=== PATIENT | female | born 1960 | race African-American/Black ===

== ENCOUNTER 2020-08-26 13:33 | Inpatient (IN) | payer BC, MEDICAID ==
[~2020-08-26] VITALS: Ht 167.6 cm; Wt 130.6 kg
[2020-08-26 13:45] VITALS: BP 99/63
--- NOTE | 2020-08-26 14:32 | Emergency Room Report ---
History of Present Illness General Chief Complaint: Generalized Weakness Source: Patient Present Illness HPI 59-year-old female with history of hypercholesterolemia on a statin here with lightheadedness for 8 days. Patient says that she has had subjective fever, productive cough for the last 8 days. She says over the past several days she has had intermittent lightheadedness upon standing. She has not taken any medications for her symptoms. Pleasant she got a flu shot several weeks ago. Denies chills, chest pain, palpitations, shortness of breath, back pain, abdominal pain, nausea, vomiting, diarrhea, dysuria. No leg pain, leg swelling, recent long car rides or plane rides. 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 Past Medical History: No History, Except For Hx COPD: Yes - bronchitis Review of Systems All Other Systems: negative except mentioned in HPI Physical Exam Vital Signs Date Time Temp Pulse Resp B/P (MAP) Pulse Ox O2 Delivery O2 Flow Rate FiO2 08/26/20 13:38 98.8 102 16 99/63 (75) 90 Room Air Sp02 EP Interpretation: reviewed, normal General Appearance: no apparent distress, alert, non-toxic Head: normocephalic, atraumatic Eyes: bilateral eye normal inspection, bilateral eye PERRL ENT: hearing grossly normal, normal pharynx, no angioedema, normal voice Neck: full range of motion, supple/symm/no masses Respiratory: chest non-tender, lungs clear, normal breath sounds, speaking full sentences Cardiovascular #1: regular rate, rhythm, no edema Cardiovascular #2: 2+ carotid (R), 2+ carotid (L), 2+ radial (R), 2+ radial (L), 2+ dorsalis pedis (R), 2+ dorsalis pedis (L) Gastrointestinal: normal bowel sounds, non tender, soft, non-distended, no guarding, no rebound Rectal: deferred Genitourinary: normal inspection, no CVA tenderness Musculoskeletal: back normal, normal range of motion, gait/station normal, non- tender Neurologic: alert, motor strength/tone normal, oriented x3, sensory intact, responsive, speech normal Psychiatric: judgement/insight normal, memory normal, mood/affect normal, no suicidal/homicidal ideation Lymphatic: no adenopathy Medical Decision Making Diagnostic Impression: Primary Impression: Pulmonary embolism Additional Impressions: Suspected 2019 novel coronavirus infection Cough Weakness NSTEMI (non-ST elevated myocardial infarction) UTI (urinary tract infection) ER Course EKG: NSR, rate 87 bpm. T wave inversions in leads V3 through V6, intervals WNL. No ectopy Rhythm strip: patient monitored for arrhythmias - no malignant dysrhythmias, runs of PVCs, nor pauses noted Chest x-ray: Diffuse interstitial appearing pulmonary infiltrates through all lung art concerning for infectious process. No cardiomegaly. No free air under the diaphragm. No bony abnormalities. Total critical care time: Approximately 45 minutes Due to a high probability of clinically significant, life threatening deteri oration, the patient required the highest level of preparedness to intervene emergently and I personally spent this critical care time directly and personally managing the patient. This critical care time included obtaining a history, examining the patient, pulse oximetry, ordering and reviewing studies, ordering treatments, evaluating response to treatment and updating management plan as needed, frequent reassessment and discussion with other providers as well as arranging for ultimate disposition. This critical to care time was performed to assess and manage the high probability of life-threatening deterioration that could result in multiorgan failure. This critical care time is separate from the separately billable procedures and treating other patients. CTA chest: Impression: Findings suspicious for single right upper lobe subsegmental branch vessel pulmonary embolus. Bilateral diffuse patchy groundglass opacities, highly suspicious for viral pneumonia Portable and cardiomegaly Large hiatal hernia Incidental finding right renal cyst Procedure: XRAY Chest 1v Indication: Shortness of breath Technique: One view of the chest Comparison: none Findings: Bilateral interstitial and airspace infiltrates are demonstrated. The pleural spaces are clear. The heart size is normal. There is a hiatal hernia Impression: Bilateral infiltrates, likely multifocal pneumonia Hiatal hernia Laboratory Tests Test 08/26/20 14:23 08/26/20 14:25 White Blood Count 9.7 K/UL (4.8-10.8) Red Blood Count 4.33 M/UL (4.20-5.40) Hemoglobin 13.8 G/DL (12.0-16.0) Hematocrit 42.3 % (37.0-47.0) Mean Corpuscular Volume 98 FL (80-99) Mean Corpuscular Hemoglobin 32.0 PG (27.0-31.0) H Mean Corpuscular Hemoglobin Concent 32.7 G/DL (32.0-36.0) Red Cell Distribution Width 12.8 % (11.6-14.8) Platelet Count 239 K/UL (150-450) Mean Platelet Volume 8.0 FL (6.5-10.1) Neutrophils (%) (Auto) 81.0 % (45.0-75.0) H Lymphocytes (%) (Auto) 11.6 % (20.0-45.0) L Monocytes (%) (Auto) 6.5 % (1.0-10.0) Eosinophils (%) (Auto) 0.1 % (0.0-3.0) Basophils (%) (Auto) 0.9 % (0.0-2.0) Prothrombin Time 10.8 SEC (9.30-11.50) Prothrombin Time INR 1.0 (0.9-1.1) Activated Partial Thromboplast Time 35 SEC (23-33) H D-Dimer 0.46 mg/L FEU (0.00-0.49) Urine Color Yellow Urine Appearance Cloudy Urine pH 8 (4.5-8.0) Urine Specific Willow 1.010 (1.005-1.035) Urine Protein 2+ (NEGATIVE) H Urine Glucose (UA) Negative (NEGATIVE) Urine Ketones Negative (NEGATIVE) Urine Blood 4+ (NEGATIVE) H Urine Nitrite Negative (NEGATIVE) Urine Bilirubin Negative (NEGATIVE) Urine Urobilinogen 4 MG/DL (0.0-1.0) H Urine Leukocyte Esterase 3+ (NEGATIVE) H Urine RBC 2-4 /HPF (0 - 2) H Urine WBC 5-10 /HPF (0 - 2) H Urine Squamous Epithelial Cells Few /LPF (NONE/OCC) Urine Amorphous Sediment Moderate /LPF (NONE) H Urine Bacteria Moderate /HPF (NONE) H Ferritin 343 NG/ML (8-388) Lactate Dehydrogenase 312 U/L (81-234) H Total Creatine Kinase 100 U/L (26-308) Creatine Kinase MB < 0.5 NG/ML (0.0-3.6) Creatine Kinase MB Relative Index 0.5 C-Reactive Protein, Quantitative 26.0 mg/dL (0.00-0.90) H Pro-B-Type Natriuretic Peptide 253 pg/mL (0-125) H 249 pg/mL (0-125) H Lipase 43 U/L (73-393) L Urine Opiates Screen Negative (NEGATIVE) Urine Barbiturates Screen Negative (NEGATIVE) Phencyclidine (PCP) Screen Negative (NEGATIVE) Urine Amphetamines Screen Negative (NEGATIVE) Urine Benzodiazepines Screen Negative (NEGATIVE) Urine Cocaine Screen Negative (NEGATIVE) Urine Marijuana (THC) Screen Negative (NEGATIVE) Sodium Level 136 MMOL/L (136-145) Potassium Level 4.2 MMOL/L (3.5-5.1) Chloride Level 99 MMOL/L (98-107) Carbon Dioxide Level 31 MMOL/L (21-32) Anion Gap 6 mmol/L (5-15) Blood Urea Nitrogen 8 mg/dL (7-18) Creatinine 0.9 MG/DL (0.55-1.30) Estimated Glomerular Filtration Rate > 60 mL/min (>60) Glucose Level 96 MG/DL (74-106) Calcium Level 8.7 MG/DL (8.5-10.1) Total Bilirubin 0.5 MG/DL (0.2-1.0) Aspartate Amino Transferase (AST) 32 U/L (15-37) Alanine Aminotransferase (ALT) 26 U/L (12-78) Alkaline Phosphatase 131 U/L (46-116) H Troponin I 0.000 ng/mL (0.000-0.056) Total Protein 7.7 G/DL (6.4-8.2) Albumin 3.0 G/DL (3.4-5.0) L Globulin 4.7 g/dL Albumin/Globulin Ratio 0.6 (1.0-2.7) L 59-year-old female here with several days of generalized weakness. Patient was found to be mildly hypotensive on arrival to the emergency department with a MAP of 65. She was given a full 30 cc/kg fluid bolus and had vast improvement of her blood pressure. At no point was she ever in respiratory distress. She had normal oxygen saturation throughout her stay in the emergency department. However she was complaining of some mild generalized chest discomfort. Chest x- ray showed multiple pulmonary infiltrates throughout the lung art suspicious for possible COVID-19. COVID-19 swab pending at this time. CTA of the chest revealed groundglass opacities diffusely as well as a small pulmonary embolism. Patient was given a dose of 100 mg of Lovenox. She also had evidence of urinary tract infection. She was started on ceftriaxone and azithromycin and Decadron. Will be admitted to telemetry. Last Vital Signs Date Time Temp Pulse Resp B/P (MAP) Pulse Ox O2 Delivery O2 Flow Rate FiO2 08/26/20 13:38 98.8 102 16 99/63 (75) 90 Room Air Fidel Healy M.D. Aug 26, 2020 14:32
[2020-08-26 14:53] LABS: APPEARANCE,URINE CLOUDY; BILIRUBIN, URINE NEGATIVE (NEGATIVE); GLUCOSE, URINE (UA) NEGATIVE (NEGATIVE); KETONES,URINE NEGATIVE (NEGATIVE); LEUKOCYTE ESTERASE ,URINE 3+ (NEGATIVE); NITRITE,URINE NEGATIVE (NEGATIVE); PH,URINE 8 (4.5-8.0); PROTEIN,URINE 2+ (NEGATIVE); UROBILINOGEN,URINE 4 MG/DL (0.0-1.0)
[2020-08-26 15:01] LABS: BASOPHILS % (AUTO) 0.9 % (0.0-2.0); EOSINOPHILS % (AUTO) 0.1 % (0.0-3.0); HEMATOCRIT 42.3 % (37.0-47.0); HEMOGLOBIN 13.8 G/DL (12.0-16.0); LYMPHOCYTES % (AUTO) 11.6 % (20.0-45.0); MEAN CORPUSCULAR VOLUME 98 FL (80-99); MONOCYTES % (AUTO) 6.5 % (1.0-10.0); PLATELET COUNT 239 K/UL (150-450); RED BLOOD COUNT 4.33 M/UL (4.20-5.40); RED CELL DISTRIBUTION WIDTH 12.8 % (11.6-14.8); WHITE BLOOD COUNT 9.7 K/UL (4.8-10.8)
[2020-08-26 15:03] LABS: COLOR,URINE YELLOW
[2020-08-26 15:06] LABS: ANION GAP 6 mmol/L (5-15); BLOOD UREA NITROGEN 8 mg/dL (7-18); CALCIUM 8.7 MG/DL (8.5-10.1); CARBON DIOXIDE 31 MMOL/L (21-32); CHLORIDE 99 MMOL/L (98-107); CREATININE 0.9 MG/DL (0.55-1.30); POTASSIUM 4.2 MMOL/L (3.5-5.1); SODIUM 136 MMOL/L (136-145)
[2020-08-26 15:10] LABS: ALANINE AMINOTRANSFERASE 26 U/L (12-78); ALBUMIN/GLOBULIN RATIO 0.6 (1.0-2.7); ALKALINE PHOSPHATASE 131 U/L (46-116); ASPARTATE AMINO TRANSFERASE 32 U/L (15-37); BILIRUBIN,TOTAL 0.5 MG/DL (0.2-1.0)
[2020-08-26] MEDS ORDERED: cefTRIAXone 1 GM in NS 55 ML IVPB ONE (15:15)
[2020-08-26] MEDS ORDERED: Aspirin Baby 81mg ORAL ONE (15:15)
[2020-08-26] MEDS ORDERED: Omnipaque 350 100ml vial INJ PRN (15:30)
--- NOTE | 2020-08-26 16:43 | Diagnostic Imaging Report ---
Indication: Shortness of breath Technique: One view of the chest Comparison: none Findings: Bilateral interstitial and airspace infiltrates are demonstrated. The pleural spaces are clear. The heart size is normal. There is a hiatal hernia Impression: Bilateral infiltrates, likely multifocal pneumonia Hiatal hernia
--- NOTE | 2020-08-26 16:55 | Diagnostic Imaging Report ---
ndication: Chest pain, shortness of breath, coughing Technique: IV administration nonionic contrast. Spiral acquisitions obtained from the lung bases to the lung apices. Multiplanar and 3-D reconstructions were generated on integrated workstation. Total dose length product 764 mGycm. CTDIvol(s) one, 45, 21 mGy. Dose reduction achieved using automated exposure control Comparison: none Findings: There is good quality opacification of the pulmonary arteries. There is lack of opacification of a single subsegmental right upper lobe pulmonary artery posterior branch vessel, best appreciated on axial image 71 of series 5 and coronal images 70 through 72 of series 9. No other definite filling defects. Normal caliber pulmonary arteries. No evidence of right ventricular dilatation. No evidence of thoracic aortic aneurysm or dissection demonstrated. The lungs demonstrate bilateral diffuse patchy groundglass opacities. No effusions. No definite masses or nodules. The heart is borderline enlarged. There is a large paraesophageal hiatal hernia. No mediastinal or hilar mass or adenopathy demonstrated. The thyroid is unremarkable except for a small calcification in the isthmus. No axillary or chest wall mass or adenopathy. The included upper abdominal anatomy is remarkable for the presence of a right renal cyst. Impression: Findings suspicious for single right upper lobe subsegmental branch vessel pulmonary embolus. Bilateral diffuse patchy groundglass opacities, highly suspicious for viral pneumonia Portable and cardiomegaly Large hiatal hernia Incidental finding right renal cyst The CT scanner at [facility] is accredited by the [employer] and the scans are performed using protocols designed to limit radiation exposure to as low as reasonably achievable to attain images of sufficient resolution adequate for diagnostic evaluation.
[2020-08-26] MEDS ORDERED: Azithromycin 500 MG in NS 275 ML IV ONE (17:15)
[2020-08-26] MEDS ORDERED: Enoxaparin 100mg Inj SUBQ ONE (17:15)
[2020-08-26] MEDS ORDERED: dexAMETHasone 10mg/ml Inj IV ONE (17:15)
[2020-08-26 17:36] LABS: CKMB < 0.5 NG/ML (0.0-3.6); CREATINE KINASE 100 U/L (26-308); FERRITIN 343 NG/ML (8-388); LACTATE DEHYDROGENASE 312 U/L (81-234)
[2020-08-26] MEDS ORDERED: Albuterol 90mcg Inhaler 8gm INH PRN (19:15)
[2020-08-26] MEDS: cefTRIAXone 1 GM in D5W 55 ML IVPB SCH (21:00)
[2020-08-27] VITALS: BP 139/73
[2020-08-27] MEDS: Ascorbic Acid 500mg tab ORAL SCH ×3 (00:27→18:17)
[2020-08-27 04:00] VITALS: BP 128/77
[2020-08-27 08:00] VITALS: BP 106/73
[2020-08-27] MEDS: Eliquis 5mg tablet ORAL SCH ×2 (08:41→18:17)
[2020-08-27] MEDS: Zinc Sulfate 220mg ORAL SCH (08:41)
[2020-08-27] MEDS: Azithromycin 250mg tab ORAL SCH (08:41)
[2020-08-27] MEDS: Vitamin D 1000 units Tab ORAL SCH (08:41)
--- NOTE | 2020-08-27 09:00 | History and Physical Report ---
DATE OF ADMISSION: 08/26/2020 CHIEF COMPLAINT: COVID-19 pneumonia, PE. HISTORY OF PRESENT ILLNESS: The patient is a 59-year-old female with no past medical history. She presents with complaints of fevers, cough, and congestion lasting for approximately a week. On evaluation in the emergency room, her rapid COVID was positive. A CT scan of the chest showed ground-glass opacities bilaterally and a small subsegmental pulmonary embolism. In light of the above findings, the patient is now admitted for further evaluation and care. She is currently doing well and saturating 99% on room air. PAST MEDICAL HISTORY: None. PAST SURGICAL HISTORY: None. CURRENT MEDICATIONS: None. FAMILY HISTORY: None. SOCIAL HISTORY: Negative for tobacco, ethanol, or drugs. REVIEW OF SYSTEMS: Negative except for some cough and chest pain. PHYSICAL EXAMINATION: VITAL SIGNS: Temperature 98, pulse 80, respirations 24, blood pressure 128/77. GENERAL: The patient is well developed, in no apparent distress. HEART: Regular. LUNGS: Clear ABDOMEN: Soft. EXTREMITIES: Without clubbing, cyanosis, or edema. PLAN: 1. Start on Eliquis loading dose for one week and then 5 mg twice a day for the next three to six months. 2. ID consultation. 3. Supplemental oxygen and Tylenol as needed. 4. Possible discharge planning if no specific treatment for COVID is needed at this time. Franko Khan M.D. DR: JOSSELYN JOB#: [id number] CC:
[2020-08-27 12:00] VITALS: BP 97/76
--- NOTE | 2020-08-27 12:29 | Consultation ---
DATE OF CONSULTATION: 08/27/2020 INFECTIOUS DISEASE CONSULTATION CONSULTING PHYSICIAN: Jonah Collier MD. REFERRING PHYSICIAN: Franko Khan MD. REASON FOR CONSULTATION: COVID-19 pneumonia. HISTORY OF PRESENTING ILLNESS: This is a 59-year-old lady with hypercholesterolemia, who comes in along with fever, cough, and congestion. She was found to be COVID-[address] chest showed ground-glass opacities bilaterally with a small pulmonary embolism. An Infectious Diseases consultation has been obtained for antibiotics. PAST MEDICAL HISTORY: History of hypercholesterolemia. SOCIAL HISTORY: She does not smoke, drink, or use drugs. FAMILY HISTORY: Noncontributory. REVIEW OF SYSTEMS: RESPIRATORY: She has fever. She has cough and congestion. No shortness of breath. She does have mild chest pain. CARDIAC: She does have mild chest pain. No palpitation. No dizziness. No syncope. GASTROINTESTINAL: No nausea. No vomiting. No abdominal pain or diarrhea. MEDICATIONS: As an inpatient, she is on Eliquis, zinc sulfate, vitamin D, azithromycin, Eliquis, Tylenol, ascorbic acid, ceftriaxone, albuterol, and Protonix. ALLERGIES: No known drug allergies. PHYSICAL EXAMINATION: VITAL SIGNS: Temperature 99.5, T-max of 100.8, pulse of 106, respiratory rate 21, blood pressure 106/73. O2 saturation of 99% on room air. Examination is deferred due to COVID-19. LABORATORY DATA: White count 9.7, hemoglobin 13.8, hematocrit 42.3, MCV 98, platelet count of 239,000. Sodium 136, potassium 4.2, chloride 99, bicarb 31, BUN 8, creatinine 0.9. Glucose 96. Calcium 8.7. Total bilirubin 0.5, AST 32, ALT 36, alkaline phosphatase 131. LDH 312. CK 100. Troponin 0. Beta-natriuretic peptide 249. Total protein 7.7, albumin 3. Lipase of 43. UA is showing 5 to 10 white cells. COVID-19 test is positive. Chest x-ray is showing bilateral infiltrates. CT chest angiogram showing suspicious for single right upper lobe pulmonary embolus, diffuse bilateral patchy ground-glass opacities, large hiatal hernia. ASSESSMENT: This is a 59-year-old lady with history of hypercholesterolemia, who comes in with fever, cough along with congestion and is found to have, 1. COVID-19 pneumonia. She is on room air with a saturation of 99%. 2. She also might have urinary tract infection. 3. Hypercholesterolemia. PLAN: 1. Continue ceftriaxone. 2. Discontinue azithromycin. 3. We will order urine cultures. 4. Continue isolation. I would like to thank Dr. Khan for this consultation. Jonah Collier M.D. DR: JOSÉ MANUEL JOB#: [id number] CC:
[2020-08-27 16:00] VITALS: BP 121/71
[2020-08-27 20:00] VITALS: BP 136/83
[2020-08-27] MEDS: cefTRIAXone 1 GM in D5W 55 ML IVPB SCH (21:23)
[2020-08-28] VITALS: BP 141/80
[2020-08-28 04:00] VITALS: BP 136/73
[2020-08-28 08:00] VITALS: BP 127/63
[2020-08-28] MEDS: Zinc Sulfate 220mg ORAL SCH (08:40)
[2020-08-28] MEDS: Eliquis 5mg tablet ORAL SCH ×2 (08:40→17:34)
[2020-08-28] MEDS: Ascorbic Acid 500mg tab ORAL SCH ×2 (08:40→17:33)
[2020-08-28] MEDS: Vitamin D 1000 units Tab ORAL SCH (08:40)
[2020-08-28] MEDS: Azithromycin 250mg tab ORAL SCH (08:41)
--- NOTE | 2020-08-28 11:52 | General Progress Note ---
Subjective ROS Limited/Unobtainable: No Constitutional: Reports: no symptoms, weakness HEENT: Reports: no symptoms Cardiovascular: Reports: no symptoms Respiratory: Reports: no symptoms Gastrointestinal/Abdominal: Reports: no symptoms Genitourinary: Reports: no symptoms Neurologic/Psychiatric: Reports: no symptoms Endocrine: Reports: no symptoms Hematologic/Lymphatic: Reports: no symptoms Allergies: Coded Allergies: No Known Allergies (Unverified , 08/26/20) All Systems: reviewed and negative except above Subjective no complaints. no chest pain or sob. no fever or chills. no bleeding Objective Last 24 Hour Vital Signs Date Time Temp Pulse Resp B/P (MAP) Pulse Ox O2 Delivery O2 Flow Rate FiO2 08/28/20 09:00 Room Air 08/28/20 08:00 98.7 91 20 127/63 (84) 99 08/28/20 08:00 77 08/28/20 04:00 68 08/28/20 04:00 99.0 69 18 136/73 (94) 99 08/28/20 00:00 69 08/28/20 00:00 99.0 80 23 141/80 (100) 99 08/27/20 21:00 Room Air 08/27/20 20:00 97.3 80 20 136/83 (100) 97 08/27/20 20:00 85 08/27/20 16:00 98.6 76 21 121/71 (88) 97 08/27/20 16:00 77 08/27/20 12:00 99.7 77 21 97/76 (83) 97 08/27/20 12:00 84 Intake and Output 08/27/20 08/28/20 19:00 07:00 Intake Total 1680 ml 400 ml Balance 1680 ml 400 ml Intake Oral 1680 ml 400 ml # Voids 3 1 Height (Feet): 5 Height (Inches): 6.00 Weight (Pounds): 288 General Appearance: WD/WN, alert Cardiovascular: normal rate, regular rhythm Respiratory/Chest: chest wall non-tender, lungs clear, normal breath sounds Edema: no edema noted Leg (L), no edema noted Leg (R) Assessment/Plan Problem List: (1) NSTEMI (non-ST elevated myocardial infarction) ICD Codes: I21.4 - Non-ST elevation (NSTEMI) myocardial infarction SNOMED: 29430349 (2) Pulmonary embolism ICD Codes: I26.99 - Other pulmonary embolism without acute cor pulmonale SNOMED: 88084479 (3) UTI (urinary tract infection) ICD Codes: N39.0 - Urinary tract infection, site not specified SNOMED: 90504303 (4) Suspected 2019 novel coronavirus infection ICD Codes: Z20.828 - Contact with and (suspected) exposure to other viral communicable diseases SNOMED: 951257193 (5) Cough ICD Codes: R05 - Cough SNOMED: 07607288 (6) Weakness ICD Codes: R53.1 - Weakness SNOMED: 12253883 Status: stable Assessment/Plan: follow up positive cultures abd per id eliquis for pe dc planning if cleared by id Franko Khan MD Aug 28, 2020 11:52
[2020-08-28 11:59] VITALS: BP 145/86
[2020-08-28 16:00] VITALS: BP 136/72
--- NOTE | 2020-08-28 16:09 | Infectious Diseases Prog Note ---
Assessment/Plan Assessment/Plan A; 1. COVID19 pneumonia. She is on room air with a saturation of 96%. 2. Pyuria/urinary tract infection. 3. Hypercholesterolemia. 4. Small PE 6. Morbid obesity PLAN: 1. Continue ceftriaxone. 2. We will follow urine culture. 3. Continue isolation. Subjective ROS Limited/Unobtainable: No Constitutional: Reports: no symptoms HEENT: Reports: no symptoms Respiratory: Reports: no symptoms Cardiovascular: Reports: no symptoms Gastrointestinal/Abdominal: Reports: no symptoms Genitourinary: Reports: no symptoms Allergies: Coded Allergies: No Known Allergies (Unverified , 08/26/20) Objective Last 24 Hour Vital Signs Date Time Temp Pulse Resp B/P (MAP) Pulse Ox O2 Delivery O2 Flow Rate FiO2 08/28/20 12:00 69 08/28/20 11:59 97.3 86 21 145/86 (105) 96 08/28/20 09:00 Room Air 08/28/20 08:00 98.7 91 20 127/63 (84) 99 08/28/20 08:00 77 08/28/20 04:00 68 08/28/20 04:00 99.0 69 18 136/73 (94) 99 08/28/20 00:00 69 08/28/20 00:00 99.0 80 23 141/80 (100) 99 08/27/20 21:00 Room Air 08/27/20 20:00 97.3 80 20 136/83 (100) 97 08/27/20 20:00 85 Height (Feet): 5 Height (Inches): 6.00 Weight (Pounds): 288 General Appearance: no acute distress HEENT: mucous membranes moist Respiratory/Chest: lungs clear Cardiovascular: normal rate Abdomen: soft, non tender Extremities: no edema Neurologic/Psychiatric: alert, oriented x 3, responsive Microbiology Date/Time Source Procedure Growth Status 08/26/20 18:10 Blood Blood Culture - Preliminary Resulted 08/26/20 17:55 Blood Blood Culture - Preliminary NO GROWTH AFTER 24 HOURS Resulted 08/26/20 14:23 Urine,Clean Catch Urine Culture - Preliminary Resulted 08/26/20 14:23 Nasopharynx SARS-CoV-2 RdRp Gene Assay - Final Complete Current Medications Medications (Trade) Dose Ordered Sig/Lucas Route PRN Reason Start Time Stop Time Status Last Admin Dose Admin Acetaminophen (Tylenol) 650 mg Q4H PRN ORAL Mild Pain/FERGUSON/any fever 08/27/20 02:15 09/26/20 02:14 Albuterol Sulfate (Proventil MDI) 2 puff Q4H PRN INH Shortness of Breath 08/26/20 19:15 11/24/20 19:14 Apixaban (Eliquis) 5 mg BID ORAL 09/03/20 09:00 12/02/20 08:59 Apixaban (Eliquis) 10 mg BID ORAL 08/27/20 09:00 09/02/20 18:01 08/28/20 08:40 Ascorbic Acid (Vitamin C) 500 mg TWICE A DAY ORAL 08/26/20 21:00 09/25/20 20:59 08/28/20 08:40 Azithromycin (Zithromax) 250 mg DAILY ORAL 08/27/20 09:00 09/03/20 08:59 08/28/20 08:41 Ceftriaxone Sodium 1 gm/ Dextrose 55 ml @ 110 mls/hr Q24H IVPB 08/26/20 21:00 09/02/20 20:59 08/27/20 21:23 Pantoprazole (Protonix) 40 mg DAILY ORAL 08/26/20 19:15 09/25/20 19:14 08/28/20 08:40 Vitamin D (Vitamin D) 1,000 unit DAILY ORAL 08/27/20 09:00 09/26/20 08:59 08/28/20 08:40 Zinc Sulfate (Zinc Sulfate) 220 mg DAILY ORAL 08/27/20 09:00 11/25/20 08:59 08/28/20 08:40 Bruno Orr MD Aug 28, 2020 16:09
[2020-08-28 20:00] VITALS: BP 148/82
[2020-08-28] MEDS: cefTRIAXone 1 GM in D5W 55 ML IVPB SCH (20:52)
[2020-08-29] VITALS: BP 141/81
[2020-08-29 04:00] VITALS: BP 142/78
[2020-08-29 08:00] VITALS: BP 124/72
[2020-08-29] MEDS: Vitamin D 1000 units Tab ORAL SCH (08:55)
[2020-08-29] MEDS: Eliquis 5mg tablet ORAL SCH (08:55)
[2020-08-29] MEDS: Azithromycin 250mg tab ORAL SCH (08:56)
[2020-08-29] MEDS: Zinc Sulfate 220mg ORAL SCH (08:56)
[2020-08-29] MEDS: Ascorbic Acid 500mg tab ORAL SCH (08:56)
[2020-08-29 12:00] VITALS: BP 126/80
[2020-08-29] MEDS ORDERED: ELIQUIS5 MG ORAL (14:10)
[2020-08-29] MEDS ORDERED: PANTOPRAZOLE SO40 MG ORAL (14:10)
[2020-08-29] MEDS ORDERED: Eliquis 5mg tablet ORAL SCH (14:51)
--- NOTE | 2020-09-01 09:10 | Discharge Summary ---
Discharge Summary Discharge Summary _ DATE OF ADMISSION: 08/26/2020 DATE OF DISCHARGE: 08/29/2020 DISCHARGED BY: Dr. Khan REASON FOR ADMISSION: 59 years old female with past medical history of hypercholesterolemia , presented with lightheadedness for the last 8 days. Patient reported subjective fevers and productive cough. She also reported intermittent lightheadedness over the past 8 days upon standing. Patient reported getting a flu shot several weeks ago. She denied chest pain, palpitations, shortness of breath. She denied back pain or abdominal pain. No nausea, vomiting, diarrhea or dysuria. No leg pain or swelling. Upon evaluation patient was mildly tachycardic ; pulse oximetry was 90% on the room air. Rapid COVID-19 was positive. Chest x-ray revealed bilateral infiltrates, likely multifocal pneumonia. CTA of the chest revealed findings , suspicious for pulmonary emboli in the right upper lobe. Bilateral diffuse patchy ground-glass opacity, highly suspicious for viral pneumonia. Laboratory work-up revealed no leukocytosis , stable hemoglobin and hematocrit. Stable electrolytes and renal parameters. Lactic acid 0.9. Ferritin 343, LDH 312, CRP 26. Troponin negative . EKG revealed sinus rhythm with mild sinus tachycardia. T wave inversions in leads V3 through V6, no ectopy. No acute ischemic changes. Urinalysis revealed +2 protein, borderline pyuria and moderate bacteria. Urine toxicology screen was negative. In emergency department patient received Lovenox, Decadron, empiric antibiotic, aspirin, liter of fluid, and admitted for further management. CONSULTANTS: DAVID specialist Dr. Collier HOSPITAL COURSE: Patient admitted to telemetry floor and kept in isolation room. Patient started on anticoagulation. Supplemental oxygen provided and titrated to keep pulse oximetry above 92%. MDI albuterol was on board as needed. Pulse oximetry remained stable on room air. No need for steroids. GI prophylaxis provided. Patient was on Eliquis . Initial loading dose was given, followed up with maintenance dose for the next 3 to 6 months with outpatient follow-up with a CT chest. Urine culture revealed mixed urogenital contaminants . Patient remain afebrile without leukocytosis. Patient clinically stabilized and was ready for discharge. FINAL DIAGNOSES: COVID-19 pneumonia Pulmonary embolism Pyuria/possible UTI Morbid obesity Hypercholesterolemia DISCHARGE MEDICATIONS: See Medication Reconciliation list. DISCHARGE INSTRUCTIONS: Patient was discharged home. Continue self-isolation was advised by ID. Continue anticoagulation as prescribed. Follow-up with a primary care provider in 1 week. I have been assigned to dictate discharge summary for this account. I was not involved in the patient's management. Sasha Mane NP Sep 01, 2020 09:09
[2020-09-03] MEDS ORDERED: Eliquis 5mg tablet ORAL SCH (09:00)
== END 2020-08-29 16:06 | disposition home or self-care (01) | DRG 177 ==
LOC: EMR 16:30 → 2E 18:02 → EDBEDREQ 21:48 → 2E 08-27 04:55
DX: U07.1 COVID-19 (principal); I26.99 Other pulmonary embolism without acute cor pulmonale; I21.4 Non-ST elevation (NSTEMI) myocardial infarction; J12.89 Other viral pneumonia; N39.0 Urinary tract infection, site not specified; E78.00 Pure hypercholesterolemia, unspecified; E66.01 Morbid (severe) obesity due to excess calories
CPT/HCPCS: 36415; 71045; 71275; 80053; 80307; 81003; 82550; 82553; 82728; 83605; 83615; 83690; 83880; 84484; 85025; 85379; 85610; 85730; 86140; 87040; 87086; 93005; 96361; 96365; 96367; 96375; 99291; U0002